=== PATIENT | male | born 1995 | race Caucasian/White ===

== ENCOUNTER 2020-10-06 20:56 | Emergency (ER) | payer MEDICAID ==
[~2020-10-06] VITALS: Ht 172.7 cm; Wt 100.7 kg
[2020-10-06 21:10] VITALS: BP 151/82
[2020-10-06 21:49] LABS: BASOPHILS # (AUTO) 0.1 K/uL (0.00-0.22); BASOPHILS % (AUTO) 0.6 % (0.0-2.0); EOSINOPHILS # (AUTO) 0.2 K/uL (0-0.4); EOSINOPHILS % (AUTO) 2.3 % (0.0-4.0); HEMATOCRIT 44.3 % (36-52); LYMPHOCYTES # (AUTO) 2.4 K/uL (2.0-11.5); LYMPHOCYTES % (AUTO) 29.8 % (20.5-51.1); MEAN CORPUSCULAR HEMOGLOBIN 30 pg (27-31); MEAN CORPUSCULAR HGB CONC 34 g/dL (33-37); MEAN CORPUSCULAR VOLUME 88.8 fL (80-94); MONOCYTES # (AUTO) 0.7 K/uL (0.8-1.0); MONOCYTES % (AUTO) 8.6 % (1.7-9.3); NEUTROPHILS # (AUTO) 4.6 K/uL (1.8-7.7); NEUTROPHILS % (AUTO) 58.7 % (42.2-75.2); PLATELET COUNT (AUTO) 197 K/uL (140-450); RED BLOOD CELL COUNT(AUTO) 4.99 MIL/uL (4.20-6.10); WHITE BLOOD COUNT (AUTO) 7.9 K/uL (4.8-10.8)
--- NOTE | 2020-10-06 21:59 | NUR ---
PT TAKEN TO BED 12
--- NOTE | 2020-10-06 22:00 | NUR ---
PT BIB SELF FOR C/C INTERMITTENT HEADACHE X 1 MONTH, ALONG WITH FEELING WEAK AND SLEEPY POST MEAL TIME, DRY MOUTH, NUMB HANDS UPON WAKING UP, AND BLURRED VISION. PT DENIES N/V/D, FEVER, CHILLS, CP, SOB. PT REPORTS FAMILY HX OF DM AND IS CONCERNED. SKIN IS WARM, DRY AND INTACT. PT DENIES LOC OR RECENT FALLS. AT BEDSIDE. MED HX: PREDIABETIC, KIDNEY STONES ALLERGIES: NKA
[2020-10-06 22:06] LABS: ALBUMIN 4.3 g/dL (3.4-5.0); ANION GAP 12.2 (8-16); CARBON DIOXIDE 26.6 mmol/L (21-32); POTASSIUM 3.8 mmol/L (3.5-5.1); TOTAL BILIRUBIN 0.4 mg/dL (0.0-1.0)
--- NOTE | 2020-10-06 22:27 | NUR ---
ERMD AYAN AT BEDSIDE
--- NOTE | 2020-10-06 22:57 | NUR ---
Patient discharged with v/s stable. Written and verbal after care instructions given and explained. Patient verbalized understanding. Ambulatory with steady gait. All questions addressed prior to discharge. Advised to follow up with PMD.
== END 2020-10-06 22:57 | disposition home or self-care (01) ==
LOC: MED 20:56
DX: R42 Dizziness and giddiness (principal); R53.1 Weakness; R51.9 Headache, unspecified
CPT/HCPCS: 36415; 80053; 85025; 93005; 99284

== ENCOUNTER 2020-11-02 00:23 | Emergency (ER) | payer MEDICAID ==
--- NOTE | 2020-11-02 01:03 | NUR ---
PATIENT CALLED TO BE TRIAGE N0 RESPONSE. PATIENT LEFT WITHOUT BEING SEEN BY DR. PEREZ. NO FURTHER CARE PROVIDED FOR PATIENT.
--- NOTE | 2020-11-02 01:10 | NUR ---
CALLED FOR THE SECOND TIME NO RESPONSE
--- NOTE | 2020-11-02 01:30 | NUR ---
CALLED FOR THE THIRD TIME , NO RESPONSE
== END 2020-11-02 01:03 | disposition left against medical advice (07) ==
LOC: MED 00:23
DX: R51.9 Headache, unspecified (principal); Z53.21 Procedure and treatment not carried out due to patient leaving prior to being seen by health care provider

== ENCOUNTER 2022-06-17 23:51 | Emergency (ER) | payer MEDICAID ==
[~2022-06-17] VITALS: Ht 167.6 cm; Wt 127.0 kg
[2022-06-17 23:55] VITALS: BP 121/67
--- NOTE | 2022-06-18 | NUR ---
TO LOBBY A/W BED AMBULATORY
--- NOTE | 2022-06-18 00:48 | NUR ---
URINE COLLECTED AND SENT TO LAB
--- NOTE | 2022-06-18 00:51 | NUR ---
URINE WALKED TO LAB
[2022-06-18 00:59] LABS: APPEARANCE,URINE CLEAR (CLEAR); BILIRUBIN,URINE NEGATIVE (NEGATIVE); BLOOD, URINE NEGATIVE (NEGATIVE); COLOR,URINE YELLOW (YELLOW); LEUKOCYTE ESTERASE ,URINE NEGATIVE (NEGATIVE); NITRITE, URINE NEGATIVE (NEGATIVE); PH,URINE 6.5 (5.0-9.0); UGLUCOSE NEGATIVE (NEGATIVE)
--- NOTE | 2022-06-18 01:04 | NUR ---
TO BED 12 FROM LOBBY
[2022-06-18 01:16] LABS: RBC,URINE 0-5 /HPF (0-5)
[2022-06-18] MEDS ORDERED: NITR100C7 PO (01:24)
--- NOTE | 2022-06-21 19:03 | NUR ---
LATE ENTRY. RECEIVED POSITIVE URINE CULTURE, FORM GIVEN TO DR MENDOZA. TREATMENT APPROPRIATE. FORM PLACED IN BINDER
== END 2022-06-18 01:26 | disposition home or self-care (01) ==
LOC: MED 23:51
DX: N39.0 Urinary tract infection, site not specified (principal); Z79.2 Long term (current) use of antibiotics
CPT/HCPCS: 81001; 87086; 99283